=== PATIENT | female | born 1940 | race Asian ===

== ENCOUNTER 2018-09-14 10:39 | Inpatient (IN) | payer OTHER, BC ==
[~2018-09-14] VITALS: Ht 154.9 cm; Wt 62.4 kg
[2018-09-14 10:44] VITALS: Ht 154.9 cm; Wt 62.4 kg
--- NOTE | 2018-09-14 10:51 | NUR ---
ED PHYSICIAN AT BEDSIDE FOR PATIENT EVALUATION. MEDICAL SCREENING EXAMINATION COMPLETED BY ED PHYSICIAN DR. KAMINSKI.
--- NOTE | 2018-09-14 10:58 | NUR ---
PT BIB [facility] FOR C/O GENERALIZED WEAKNESS X1 WEAK THAT IS INCREASING. MEDIC ALSO REPORTS FAMILY STATES A COUPLE FALLS THIS PAST WK. PT IS MANDARIN SPEAKING. AT BEDSIDE PT BREATHING IS E/U, SKIN IS PINK, ABLE TO MOVE ALL EXTREMITIES. PT ATTENDS DIALYSIS M/W/F. PT DID NOT GO TO DIALYSIS TODAY PER EMT. PT ON FULL SURGICAL TECHNOLOGIST, GOWNED, AND LAYING IN BED. EMT AT BEDSIDE PERFORMING EKG.
--- NOTE | 2018-09-14 11:25 | NUR ---
XRAY AT BEDSIDE
[2018-09-14 11:27] LABS: BASOPHIL % 0.3 % (0-2); PLATELET COUNT 148 x10^3mcL (130-400)
[2018-09-14 11:28] LABS: RED CELL DISTRIBUTION WIDTH 16.9 % (11.5-14.5)
[2018-09-14 11:40] LABS: ALKALINE PHOSPHATASE 92 U/L (46-116); ALT/SGPT 15 U/L (14-59); AST/SGOT 26 U/L (15-37); BILIRUBIN TOTAL 0.88 mg/dL (0.20-1.00); CALCIUM 8.2 mg/dL (8.5-10.1); CARBON DIOXIDE 28.8 mmol/L (21-32); CHLORIDE SERUM 96 mmol/L (98-107); GLUCOSE SERUM 228 mg/dL (74-106); POTASSIUM SERUM 4.3 mmol/L (3.5-5.1); SODIUM SERUM 131 mmol/L (136-145)
[2018-09-14 11:46] LABS: ALBUMIN 1.8 g/dL (3.4-5.0); TOTAL PROTEIN, SERUM 6.1 g/dL (6.4-8.2)
--- NOTE | 2018-09-14 12:19 | NUR ---
PT RESTING IN A POSITION OF COMFORFT. PT AAOX4. RESPS EVEN AND UNLABORED. CALL LIGHT WITHIN REACH. BED IN LOW POSITION WITH SIDE RAILS UP X2. APPEARS TO BE NO DISTRESS AT THIS TIME. NO CHANGE IN PT STATUS. WILL CONITINUE TO MONITOR. DAUGHTER AT BEDSIDE.
--- NOTE | 2018-09-14 12:30 | NUR ---
DAUGHTER AT BEDSIDE, PER DAUGHTER PT AMBULATES AT HOME WITH A WALKER BUT LAST NIGHT WAS UNABLE TO D/T WEAKNESS. DAUGHTER ALSO REPORTED THAT PT HAS APPOINTMENT FOR DIALYSIS THIS AFTERNOON.
[2018-09-14] MEDS ORDERED: NOR10 PO (13:36)
[2018-09-14] MEDS ORDERED: LEVOFLOXACIN500 M1 PO (13:37)
[2018-09-14] MEDS ORDERED: LIPI20 PO (13:37)
[2018-09-14] MEDS ORDERED: LASIX40 MG PO (13:37)
[2018-09-14] MEDS ORDERED: RANEXA500 M2 PO (13:38)
[2018-09-14] MEDS ORDERED: METOPROLOL SUCC50 M2 PO (13:38)
[2018-09-14] MEDS ORDERED: LOSARTAN POTAS100 M1 PO (13:38)
[2018-09-14] MEDS ORDERED: PEPCID20 MG PO (13:39)
[2018-09-14 14:08] LABS: MAGNESIUM 2.2 mg/dL (1.8-2.4); PHOSPHOROUS 3.8 mg/dL (2.5-4.9)
[2018-09-14 14:14] LABS: T3 TOTAL 0.57 ng/mL
[2018-09-14 14:16] LABS: CHOLESTEROL/HDL RATIO 4.3
[2018-09-14 14:18] LABS: FREE T4 1.55 ng/dL (0.76-1.46); FREE THYROXINE INDEX 2.8 ug/dL (1.4-4.5); T4(THYROXINE) 7.2 ug/dL (4.7-13.3)
--- NOTE | 2018-09-14 14:21 | NUR ---
REPORT GIVEN TO ELEAZAR CHRISTIANSON TO ASSUME CARE OF PATIENT
[2018-09-14 14:43] VITALS: BP 129/59
--- NOTE | 2018-09-14 14:46 | NUR ---
RECEIVED PT FROM ED VIA ALMA. ORIENTED PT TO ROOM AND SURROUNDINGS. IV NOTED TO PATENT AND INTACT. TELE 16 PLACED ON PT READING NSR. INSTRUCTED PT ON THE USE OF CALL LIGHT FOR ASSISTANCE. ENDORSED PT TO PRIMARY NURSE ELEAZAR
--- NOTE | 2018-09-14 16:23 | NUR ---
PT RESTING IN BED, NO RESPIRATORY DSITRESS NOTED, DENIES PAIN. PT AND DAUGHTER SATYA ESPOSITO STATE THAT DR ROSALES DISCUSSED TUINNEL CATH PLACEMENT. WITNESSED PT SIGN CONSENT FORM. CALL LIGHT WITHIN REACH.
[2018-09-14 17:43] VITALS: BP 111/57
--- NOTE | 2018-09-14 18:30 | NUR ---
PT RESTING IN BED, NO RESPIRATORY DSITRESS NOTED, DENIES PAIN
--- NOTE | 2018-09-14 19:33 | NUR ---
ENDORSED CARE TO SOWMYA CHRISTIANSON AND LYUBOV CHRISTIANSON.
--- NOTE | 2018-09-14 19:40 | NUR ---
DR RICHARDS MADE AWARE OF PT'S TROP-0.593, NO NEW ORDER RECEIVE AT THIS TIME.
--- NOTE | 2018-09-14 19:50 | NUR ---
RECEIVED PT FROM DAYSWIFT NURSE. A/O X4. ON TELE# 16, SR. SCDS AT BEDSIDE. BREATHING IS EVEN AND UNLABORED. [id number]-66%. BOWEL SOUNDS ACTIVE. HAS DIALYSIS ON //. PT HAS GENERALIZED WEAKNESS. SKIN IS CDI. PT HAS RIJ ACCESS. SALINE LOCKED ON L HAND. IV SITE HAS NO S/S OF INFECTION. WILL CONTINUE TO MONITOR.
--- NOTE | 2018-09-14 20:57 | NUR ---
BLOOD SUGAR CHECK - 162. NOTIFIED DR. RICHARDS THAT PT HAS POOR APPETITE AND PROCEDURE TOMORROW. DR RICHARDS STATED TO HOLD INSULIN.
[2018-09-14 21:21] VITALS: BP 127/59
[2018-09-14 22:15] VITALS: BP 128/58
--- NOTE | 2018-09-14 22:15 | NUR ---
HD COMPLTED AT THIS TIME, TOTAL OUTPUT-700 ML, BP-128/58, HR-73, NO DISTRESS NOTED, WILL KEEP TO MONITOR.
--- NOTE | 2018-09-14 22:30 | NUR ---
PT'S DIALYSIS OUTPUT - 700.
--- NOTE | 2018-09-15 03:08 | NUR ---
PT BECAME CONFUSED AFTER DIALYSIS. ORIENTED TO FAMILY. BLOOD SUGAR CHECK - 162. WILL CONTINUE TO MONITOR.
--- NOTE | 2018-09-15 04:17 | NUR ---
PT SEEN RESTING IN BED WITH DAUGHTER AT BEDSIDE. NO ACUTE DISTRESS NOTED. WILL CONTINUE TO MONITOR.
--- NOTE | 2018-09-15 05:41 | NUR ---
PT'S BLOOD SUGAR - 116. NO INSULIN COVERAGE. PT SEEN RESTING IN BED. NO ACUTE DISTRESS NOTED. WILL ENDORSE CARE TO DAYSHIFT NURSE.
[2018-09-15 06:13] VITALS: BP 130/61
[2018-09-15 06:24] LABS: BASOPHIL % 0.1 % (0-2); PLATELET COUNT 141 x10^3mcL (130-400)
[2018-09-15 06:27] LABS: CALCIUM 8.2 mg/dL (8.5-10.1); CARBON DIOXIDE 31.2 mmol/L (21-32); CHLORIDE SERUM 102 mmol/L (98-107); CREATININE SERUM 3.6 mg/dL (0.6-1.0); GLUCOSE SERUM 122 mg/dL (74-106); SODIUM SERUM 139 mmol/L (136-145)
[2018-09-15 06:45] LABS: RED CELL DISTRIBUTION WIDTH 16.7 % (11.5-14.5)
--- NOTE | 2018-09-15 07:25 | NUR ---
RECEIVED PT FROM SEGREGATOR. PT AWAKE, ALERT. FAMILY AT BEDSIDE. PT ON RA, NO RESP DISTRESS NOTED. LUNGS CTA. PT ON TELE # 16. DENIES CHEST PAIN. PERIPHERAL PULSES PALPATED, NO EDEMA NOTED. PT HAS ACTIVE BOWEL SOUNDS. LAST BM 09/11/18 PER FAMILY. PT HAS RIGHT IJ ARANZA CATH. C/D/I. PT HAS IV ACCESS ON LH, C/D/I, HEP LOCKED. PT HAS GENERALIZED WEAKNESS. PT NPO EXCEPT MEDS AT THIS TIME FOR PROCEDURE. SAFETY MEASURES IN PLACE. BED LOW AND LOCKED. CALL LIGHT WITHIN REACH.
[2018-09-15 09:14] VITALS: BP 123/55
--- NOTE | 2018-09-15 10:44 | NUR ---
PT CONT TO TRY TO GET OUT OF BED AND IS CONFUSED. DAUGHTER AT BEDSIDE DOES NOT PREVENT PT FROM GETTING OUT OF BED. DAUGHTER YELLED AT SOFTWARE ASSET MANAGER AND STATED, "THIS IS YOUR JOB. ITS NOT MY JOB TO KEEP HER IN BED. IF SHE FALLS, IM HOLDING YOU RESPONSIBLE. WE CAME HERE SO YOU GUYS CAN WATCH HER." DR GOSS AND MED TEAM AT BEDSIDE TO ASSESS PT. PER OR PT TO HAVE TUNNEL CATH PLACEMENT @ 1300. DAUGHTER NOTIFIED THAT SHE NEEDS TO STAY IN ORDER TO TRANSLATE. DAUGHTER ALSO NOTIFIED THAT STAFF CANNOT STAY AT THE BEDSIDE 17/02 AND IF DAUGHTER CANNOT ASSIST IN PREVENTING PT FROM FALLING, WE MAY HAVE TO RESTRAIN PT TO PREVENT FROM FALLING. DAUGHTER STATES, "ILL TRY TO HELP BUT I DONT KNOW." CHARGE NURSE AWARE.
--- NOTE | 2018-09-15 11:05 | NUR ---
SPOKE TO AGAPITO IN SURGERY, GAVE REPORT ON PATIENT. CONCERNED ABOUT ELEVATED TROPONIN. PER DR ROSALES, PT IS CLEARED FOR SURGERY, NO FURTHER CARDIAC WORKUP NEEDED AT THIS TIME. RELAYED INFORMATION TO AGAPITO. EKG IN THE CHART.
--- NOTE | 2018-09-15 11:30 | NUR ---
PT WIPED DOWN [facility] CHG WIPES TO PREPARE FOR SURGICAL PROCEDURE. NO ACUTE DISTRESS NOTED AT THIS TIME. DENIES PAIN, SAFETY MEASURES MAINTAINED.
--- NOTE | 2018-09-15 12:30 | NUR ---
PT OFF UNIT TO OR.
[2018-09-15 12:34] VITALS: BP 111/61
--- NOTE | 2018-09-15 13:09 | NUR ---
PHYSICAL THERAPY HERE TO WORK WITH PT AND NOTIFIED PT OFF UNIT IN OR.
[2018-09-15 13:35] VITALS: BP 128/53
--- NOTE | 2018-09-15 13:35 | NUR ---
PT BACK FROM OR BY ALISON ACCOMPANIED BY OR NURSE PUSHPA. PT SLEEPY BUT AROUSABLE AT THIS TIME. VSS 98.5 128/57 (81) HR 65 O2 SAT 94% ON ROOM AIR. NEW IV ACCESS PLACED IN OR RIGHT FOREARM 20G C/D/I. PT HAS NEW PERMACATH FOR HD ON RIGHT UPPER CHEST. NO ACUTE DISTRESS NOTED AT THIS TIME. SAFTEY MAINTAINED. BED ALARM ON. FAMILY AT BEDSIDE.
--- NOTE | 2018-09-15 14:10 | NUR ---
FAMILY CONCERNED ABOUT GETTING HELP WITH PATIENT WHEN SHE GOES HOME FROM HOSPITAL ALSO HAD QUESTIONS REGARDING CODE STATUS. DR ROSALES AWARE OF FAMILY CONCERNS, AT BEDSIDE DISCUSSING PLAN OF CARE AND CODE STATUS WITH FAMILY.
--- NOTE | 2018-09-15 16:47 | NUR ---
I WALKED INTO PT ROOM AND FOUND PT ON TOILET ASSISTED BY 2 DAUGHTERS. PT UNSTEADY AND LEANING FORWARD ON TOILET. I CALLED FOR ASSISTANCE AND UNIT SECREATARY ASSISTED ME TO STEADY PT ON TOILET. PER FAMILY, PT IS CONSTIPATED AND WANTED TO WALK TO BATHROOM. I ASKED FAMILY WHY SHE DID NOT CALL FOR HELP AND DAUGHTER STATED, "YOU GUYS DONT WANT TO GET HER UP AND SHE CANT GO THE BATHROOM AND BED." I EXPLAINED THAT PT IS MAX ASSIST AT THIS TIME AND UNABLE TO EVEN STAND ON HER OWN. FUEL SYSTEM MAINTENANCE SUPERVISOR AND I PLACED PT IN BED AND PUSHED HER IN CHAIR BACK TO BED. I EXPLAINED TO DAUGHTERS THAT PT ALMOST FELL AND CANNOT GET UP AT THIS TIME. I EDUCATED THEM ON FALL RISK AND RISK OF INJURY. I EXPLAINED THAT PT WILL NOW USE THE BEDPAN AND WE WILL HAPPILY ASSIST HER AND CLEAN HER UNTIL SHE REGAINS HER STRENGTH TO AMBULATE. DAUGHTERS VERBALIZED UNDERSTANDING. BED ALARM ON. CALL LIGHT WITHIN REACH. NO RESPIRSTORY DISTRESS NOTED AND DENIES PAIN.
[2018-09-15 16:48] VITALS: BP 116/47
--- NOTE | 2018-09-15 17:06 | NUR ---
ATTENDING RN INDICATED THAT PATIENT IS TAKEN FOR SURGICAL PROCEDURE, COULD NOT BE SEEN FOR PHYSICAL THERAPY SESSION
--- NOTE | 2018-09-15 17:35 | NUR ---
PT STABLE AT THIS TIME. DR ROSALES NOTIFIED OF NEED FOR LAXATIVE. PT WITH NO BM X 4 DAYS. NO ACUTE DISTRESS NOTED AT THIS TIME. PT FAMILY AT BEDSIDE, SAFETY MEASURES IN PLACE. BED ALARM ON. WILL CONTINUE TO MONITOR AND ENDORSE TO BRASS INSTRUMENT REPAIR TECHNICIAN
--- NOTE | 2018-09-15 18:05 | NUR ---
PT TRANSFERRED TO ROOM 216 FOR FALL RISK. PT PULLED UP AND REPOSITIONED. ASSISTED WITH DINNER TRAY SETUP. DAUGHTERS AT BEDSIDE. BED ALARM ON. CALL LIGHT WITHIN REACH.
--- NOTE | 2018-09-15 19:30 | NUR ---
PT SEEN, RESTING IN BED, ALERT AND ORIENTED X 2 WITH [place]INGAPORE[place] SPEAKING ONLY, WITH PERIOD OF CONFUSION AND FORGETFUL, DENIES HEADACHE OR DIZZINESS, BREATHING EVEN AND UNLABORED, ON ROOM AIR WITH NO RESP DISTRESS NOTED, RT CHEST WITH PERMA CATH, DRESSING C/D/I, PULSES PALPABLE, NO EDEMA NOTED, GENERALIZED WEAKNESS, ABD ROUND WITH ACTIVE BS, NO BM AT THIS TIME, ANURIA, HD PT, LAST HD 09/14 WITH 700 ML OUT, PT ABLE TO REPOSITION HERSELF IN BED, FALL PRECAUTION IN PLACE, NO DISTRESS NOTED, WILL KEEP TO MONITOR.
[2018-09-15 21:01] VITALS: BP 127/51
--- NOTE | 2018-09-15 21:57 | NUR ---
HD NURSE MARQUITA STATED THAT PT IS ON THE SCHEDULE FOR HD IN AM.
--- NOTE | 2018-09-15 23:28 | NUR ---
ROUNDS MADE, PT AWAKE AND RESTING IN BED, RESTLESS AT TIMES, PT STILL VERY CONFUSED AT THIS TIME, DAUGHTER AT BEDSIDE, SIDE RAILS UP, FALL PRECAUTION IN PLACE, NO DISTRESS NOTED, WILL CONTINUE TO MONITOR.
[2018-09-16 05:46] VITALS: BP 122/52
--- NOTE | 2018-09-16 06:13 | NUR ---
PT AWAKE AT THIS TIME, MOST OF TIME RESTLESS IN BED, ON TELE#16 NSR, SL TO RFA, PERMA CATH TO RT CHEST, HD IN AM, SIDE RAILS UP, BED ALARM ON.
[2018-09-16 07:01] LABS: BASOPHIL % 0 % (0-2); PLATELET COUNT 170 x10^3mcL (130-400); RED CELL DISTRIBUTION WIDTH 16.6 % (11.5-14.5)
--- NOTE | 2018-09-16 07:05 | NUR ---
BEDSIDE HANDOFF REPORT DONE WITH LUANN-RN, ALL QUESTIONS ANSERED AND CONCERNS ADDRESSED. PLAN- HD IN AM.
[2018-09-16 07:17] LABS: CALCIUM 8.5 mg/dL (8.5-10.1); CARBON DIOXIDE 27.8 mmol/L (21-32); CHLORIDE SERUM 100 mmol/L (98-107); GLUCOSE SERUM 147 mg/dL (74-106); POTASSIUM SERUM 4.7 mmol/L (3.5-5.1); SODIUM SERUM 138 mmol/L (136-145)
[2018-09-16 07:19] LABS: CREATININE SERUM 4.6 mg/dL (0.6-1.0)
--- NOTE | 2018-09-16 07:23 | NUR ---
RECEIVED REPORT FROM LYUBOV CHRISTIANSON. PT RESTING COMFRTABLY IN BED WITH DAUGHTER AT BEDSIDE. IV TO LFA IS PATENT AND INTACT. NO REDNESS OR PAIN. TELE # [address] NO C/O CHEST PAIN. PT ON ROOM AIR. NO C/O SOB AND NO DISTRESS NOTED. ALL QUESTIONS AND CONCERNS ADDRESSED.
[2018-09-16 09:44] VITALS: BP 122/56
--- NOTE | 2018-09-16 09:59 | NUR ---
SPOKE WITH DONALD CAR PAINTER ABOUT LACTULOSE THAT FAMILY HAS AND REPORTS WAS PRESCRIBED AT [facility] FOR CONSTIPATION. DONALD TO PUT ORDERS IN TO CONTINUE LACTULOSE AND HAS ALREADY ORDERED [facility] TO BE DRAWN.
--- NOTE | 2018-09-16 11:25 | NUR ---
CALLED DONALD TIMBER PACKER TO NOTIFY OF [facility] COMING BACK 18 (NORMAL RANGE).
[2018-09-16 12:39] VITALS: BP 115/53
--- NOTE | 2018-09-16 14:53 | NUR ---
IN TO SEE PATIENT AND ADMINISTER MEDICTION (SEE eMAR).
--- NOTE | 2018-09-16 15:59 | NUR ---
IN TO SEE PATIENT AND ASSESS NEEDS AFTER LUNCH. PT RESTING COMFORTABLY IN BED CLAIMING SHE HAS HAD A BM. PT CHECKED AND NO BM WAS PRESENT. ALL OTHER NEEDS MET. WILL CONTINUE TO MONITOR.
--- NOTE | 2018-09-16 17:07 | NUR ---
IN TO ADMINISTER 2 UNITS REGULAR INSULIN FOR GLUCOSE 164. PT RESTING COMFORTABLY IN BED WITH FAMILY ST BEDSIDE. DIALYSIS NURSE BEGINNING DIALYSIS NOW.
[2018-09-16 17:38] VITALS: BP 107/54
--- NOTE | 2018-09-16 19:20 | NUR ---
PT CONTINUING HEMODIALYSIS AT BEDSIDE. FAMILY AT BEDSIDE. AAOX1. NSR, TELE# 16. PULSES ARE MODERATE TO BUE AND BLE. LUNG SOUNDS CLEAR. PT ON ROOM AIR WITH NO S/SX OF SOB OR RESPIRATORY DISTRESS NOTED. NO S/SX OF PAIN OR DISCOMFORT NOTED. SKIN INTACT. BS ACTIVE X 4. ABD FLAT, SOFT, NONTENDER. PT HAS PERMA CATH TO R CHEST. BED IN LOW POSITION. CALL LIGHT WITHIN REACH. WILL CONTINUE TO MONITOR.
--- NOTE | 2018-09-16 19:24 | NUR ---
PT RESTING COMFORTABLY IN BED WITH FAMILY AT BEDSIDE. PT CURRENTLY HAVING DIALYSIS. NO DISTRESS. IV TO RFA IS PATENT AND INTACT. NO REDNESS OR PAIN. TELE # [address] PT DENIES CHEST PAIN. PT ON ROOM AIR. NO C/O SOB AND NO DISTRESS NOTED. WILL ENDORSE ALL CARE TO ONCOMING NURSE.
--- NOTE | 2018-09-16 19:33 | NUR ---
RECEIVED REPORT FROM LUANN CHRISTIANSON. WILL CONTINUE PT CARE AND TREATMENT.
--- NOTE | 2018-09-16 20:00 | NUR ---
PT FINISHED WITH DIALYSIS WITH -1700 OUT. PT TOLERATED DIALYSIS WELL.
[2018-09-16 21:28] VITALS: BP 106/53
--- NOTE | 2018-09-16 22:30 | NUR ---
PT NOT SLEEPING WELL X 2 DAYS. PT AND FAMILY REQUESTING SLEEPING AID FOR PT. NOTIFIED AND ORDER PLACED FOR ZOLPIDEM 5MG PO PRN.
--- NOTE | 2018-09-16 23:56 | NUR ---
PT SLEEPING COMFORTABLY IN BED AFTER RECEIVING ZOPIDEM PO. FAMILY AT BEDSIDE.
--- NOTE | 2018-09-17 05:30 | NUR ---
SHAREPOINT NET DEVELOPER AT BEDSIDE FOR BLOOD DRAW.
--- NOTE | 2018-09-17 05:44 | NUR ---
PT SLEPT COMFORTABLY THROUGHOUT NIGHT. NO SOB OR RESPIRATORY DISTRESS NOTED. PT ON RA. NO S/SX OF PAIN OR DISCOMFORT NOTED. BREATHING EVEN AND UNLABORED. LUNG SOUNDS CLEAR. NSR. NO EDEMA NOTED. BS ACTIVE X 4. ABDOMEN SOFT, FLAT, NONTENDER. PT HAD MED SIZE BM X 1. SKIN INTACT AND APPROPRIATE COLOR FOR RACE. DAUGHTER AT BEDSIDE. ALL NEEDS MET AND ANTICIPATED. BED IN LOW POSITION. CALL LIGHT WITHIN REACH. WILL GIVE REPORT TO ONCOMING RN.
[2018-09-17 06:11] VITALS: BP 98/46
[2018-09-17 06:18] LABS: BASOPHIL % 0 % (0-2); PLATELET COUNT 121 x10^3mcL (130-400); RED CELL DISTRIBUTION WIDTH 16.9 % (11.5-14.5)
[2018-09-17 06:30] LABS: CARBON DIOXIDE 29.1 mmol/L (21-32); CHLORIDE SERUM 102 mmol/L (98-107); CREATININE SERUM 3.6 mg/dL (0.6-1.0); GLUCOSE SERUM 91 mg/dL (74-106); MAGNESIUM 1.9 mg/dL (1.8-2.4); POTASSIUM SERUM 4.2 mmol/L (3.5-5.1); SODIUM SERUM 138 mmol/L (136-145)
--- NOTE | 2018-09-17 07:09 | NUR ---
RECEIVED REPORT FROM YUNG CHRISTIANSON. PT SLEEPING COMFORTABLY IN BED WITH DAUGHTER AT BEDSIDE. IV TO RFA IS PATENT AND INTACT. NO REDNESS OR PAIN. TELE # [address] NO INDICATION OF CHEST PAIN. PT ON ROOM AIR. NO DISTRESS NOTED. ALL QUESTIONS AND CONCERNS ADDRESSED.
--- NOTE | 2018-09-17 07:14 | NUR ---
GAVE REPORT TO LUANN CHRISTIANSON. ALL QUESTIONS AND CONCERNS ADDRESSED.
--- NOTE | 2018-09-17 09:55 | NUR ---
IN TO SEE PATIENT AND ADMINISTER MEDICATIONS. PT SLEEPING COMFORTABLY IN BED WITH DAUGHTER AT BEDSIDE. DAUGHTER DOES NOT WANT TO WAKE MOTHER. DAUGHTER REQUESTS IF MEDICATION CAN BE GIVEN LATER.
[2018-09-17 10:05] VITALS: BP 112/43
--- NOTE | 2018-09-17 11:00 | NUR ---
IN TO SEE PATIENT AND ADMINSTER MORNING MEDICATIONS. PT AWAKE AND ALERT.
--- NOTE | 2018-09-17 12:27 | NUR ---
IN TO ADMINISTER 6 UNITS REGULAR INSULIN FOR BLOOD GLUCOSE OF 203.PT RESTING COMFORTABLY IN BED WITH FAMILY AT BEDSIDE.
--- NOTE | 2018-09-17 12:52 | NUR ---
INSTRUCTIONAL ASSISTANT DR LINDQUIST IN TO SEE AND ASSESS PATIENT.
--- NOTE | 2018-09-17 14:31 | NUR ---
PT AMBULATED IN THE [place] WITH PHYSICAL THERAPY.
[2018-09-17 14:55] VITALS: BP 116/43
--- NOTE | 2018-09-17 15:47 | NUR ---
SPOKE WITH ASSOCIATE PRODUCT INTEGRITY ENGINEER DONALD TO EXPRESS FAMILY CONCERNS ABOUT PT NOT URINATING. PER FAMILY, PT STILL PRODUCES SOME URINE BUT HAS NOT URINATED ALL DAY AND POSSIBLY YESTERDAY TOO. DONALD OK TO ORDER BLADDER SCAN.
--- NOTE | 2018-09-17 16:22 | NUR ---
CALLED BEEF RIBBER DONALD AND LEFT MESSAGE NOTIFYING OF BLADDER SCAN RESULTS 320 AND 336. AWAITING CALL RETURN AND ORDERS.
--- NOTE | 2018-09-17 17:48 | NUR ---
IN TO SEE PATIENT TO ASSESS HUNGER AND FEED. PT REPORTS SHE IS NOT HUNGRY. PT DID REQUEST A DRINK OF WATER. PROVIDED A DRINK AND WILL RETRY FEEDING.
--- NOTE | 2018-09-17 18:05 | NUR ---
SPOKE WITH DONALD ABOUT PT BLADDER SCAN RESULTS. DONALD ORDERED STRAIGHT CATH X1.
[2018-09-17 18:26] VITALS: BP 122/46
--- NOTE | 2018-09-17 19:01 | NUR ---
IN TO SEE PATIENT TO INITIATE STRAIGHT CATH. INSERTED 14 URDU CATH AND OBTAINED 500 ML DARK YELLOW URINE. PT TOLERATED IT WELL.
--- NOTE | 2018-09-17 19:12 | NUR ---
REPORT GIVEN TO LARRY CHRISTIANSON. PT RESTING COMFORTABLY IN BED WITH DAUGHTER AT BEDSIDE. ALL QUESTIONS AND CONCERNS ADDRESSED. ALL CARES ENDORSED.
--- NOTE | 2018-09-17 19:25 | NUR ---
RECEIVED PT IN BED AWAKE W/ DAUGHTER AT BEDSIDE. PER DAUGHTER, PT IS ORIENTED TO PERSON , PLACE AND TIME AT THIS TIME. DAUGHTER STATED PT IS MORE ORIENTED TODAY THAN PREVIOUS 2 DAYS ALTHOUGH SHE SAID PT ALSO HAD A LITTLE EPISODE OF CONFUSION DURING THE DAY. LUNGS CTA. NO SOB ON RA. SHE HAS NO C/O PAIN. BOWEL SOUNDS ACTIVE. ABDOMEN IS DISTENDED AND SOFT. W/ HL TO RTFA INTACT. CALL LIGHT W/IN REACH. BED ALARM ACTIVATED FOR SAFETY.
[2018-09-17 20:40] VITALS: BP 123/51
--- NOTE | 2018-09-17 21:15 | NUR ---
PT WAS ABLE TO TAKE PO MEDS WELL.
--- NOTE | 2018-09-17 23:30 | NUR ---
PT'S EYES ARE CLOSED AND APPEARS TO BE SLEEPING COMFORTABLY. RESP. EVEN AND UNLABORED.
--- NOTE | 2018-09-18 02:00 | NUR ---
PT WOKE UP AND REQUESTED FOR SNACK. AFTER EATING, PT WENT BACK TO SLEEP. PT HAS NO C/O PAIN OR DISCOMFORT.
--- NOTE | 2018-09-18 04:30 | NUR ---
PT NOTED W/ NO URINE OUTPUT SINCE 1929 (START OF SHIFT). PT STATED SHE DOES NOT FEEL LIKE VOIDING. BLADDER SCAN DONE AND IT SHOWED OVER 900 ML.
--- NOTE | 2018-09-18 04:50 | NUR ---
HAD PT TRY TO URINATE IN BEDPAN BUT STILL WAS UNABLE TO. PAGED DR. RICHARDS TO NOTIFY. WAITING FOR HER CALL BACK.
[2018-09-18 05:11] VITALS: BP 124/48
--- NOTE | 2018-09-18 05:30 | NUR ---
PEARCE CATH [place] 16 INSERTED ORDERED. PT TOLERATED PROCEDURE WELL. NOTED CLEAR TEA COLORED URINE DRAINING SLOWLY.
--- NOTE | 2018-09-18 06:14 | NUR ---
PT AWAKE AND ALERT. SHE REMAINED CALM AND SLEPT FAIRLY DURING THE NIGHT. SHE HAD NO C/O PAIN. PEARCE CATH W/ 300 CC OUTPUT AT THIS TIME. NO BM NOTED THIS SHIFT. HL TO RTFA INTACT. CALL LIGHT W/IN REACH.
--- NOTE | 2018-09-18 07:35 | NUR ---
PT IS AAOX3-4 WITH INTERMITTENT CONFUSION. FOLLOWS COMMANDS. RESP EVEN AND UNLABORED. LUNG SOUNDS CTA. ON O2 N/C AT 2 LPM. TELE MONITOR [address] READING SR WITH DEPRESSED ST. ABODOMEN SOFT, NONTENDER, WITH MILD DISTENTION. BOWEL SOUNDS ACTIVE. PEARCE CATH IN PLACE DRAINING DARK YELLOW URINE TO GRAVITY. STAT LOCK TO R THIGH. IV CAHT TO RFA N/S LOCKED. NO S/S OF INFECTION AT SITE. R CHEST PERMACATH COVERED WITH CDI DRESSING. SITE WNL. PT DENIES PAIN OR DISCOMFORT AT THIS TIME. CALL LIGHT WITHIN REACH. BED IN LOW POSITION. BED ALARM ON. FALL PROTOCOL FOLLOWED.
[2018-09-18 08:15] VITALS: BP 126/50
--- NOTE | 2018-09-18 08:26 | NUR ---
RECEIVED ORDER FROM PHILLY ENGEL NP, D/C PEARCE CATH. ORDER NOTED AND CARRIED OUT.
--- NOTE | 2018-09-18 09:43 | NUR ---
PT RECEIVED P/T TRAINING, AMBULATED 200 FT MODERATE ASSIST. PT BACK IN BED. NO RESP DISTRESS NOTED.
--- NOTE | 2018-09-18 09:50 | NUR ---
DUE MEDS GIVEN AND TOLERATED WELL. PEARCE CATH REMOVED INTACT. PT TOLERATED PROCEDURE WELL. PT DENIES PAIN AND DISCOMFORT. CALL LIGHT WITHIN REACH. BED IN LOW POSITION. BED ALARM ON.
[2018-09-18 12:30] VITALS: BP 113/46
--- NOTE | 2018-09-18 13:00 | NUR ---
PT RECEIVING DIAYLISIS AT THIS TIME.
[2018-09-18 13:27] VITALS: BP 113/46
--- NOTE | 2018-09-18 13:42 | NUR ---
CALLED [facility] AND SPOKE WITH JOY, SCHEDULED COMMERCIAL LOAN ADMINISTRATOR FOR TRANSFER TO [facility] AT 4:OOPM TODAY (09/18/18). PATIENT AND FAMILY MADE AWARE.
--- NOTE | 2018-09-18 13:57 | NUR ---
PT HAS TRANSFERRED BY AMBULANCE ON A GURNEY ESCORTED BY 2 EMT TO [facility]. TRANSFER FORM SIGNED AND IN CHART. TRANSFER INSTRUCTIONS REVIEWED WITH PT. PT LEFT IN NO DISTRESS, DENIED CHEST PAIN, PRESSURE AND PALPITATIONS. VS: 97.8M, 65, 20, 154/98, 99% ON R/A. IV CATH TO RAC N/S LOCKED. SITE WNL. PT'S ACCOMPANIED PT UPON TRANSFER.
--- NOTE | 2018-09-18 16:45 | NUR ---
PT TRANSFERRED ON A GUERNEY ESCORTED BY 2 EMT FROM [facility] TO [facility]. REPORT GIVEN TO SAMMY KOEHLER. PT DISCHARGED IN NO DISTRESS. ALL TRANSFER FORMS SIGNED. IV CATH TO RFA REMOVED INTACT. SITE WNL. VS: 98.4, 53,16, 113/46, 94% R/A. PT DENIES PAIN OR DISCOMFORT AT TIME OF TRANSFER. ALL BELONGINGS TAKE WITH PT.
== END 2018-09-18 16:51 | DRG 981 ==
LOC: ED 10:39 → MU 13:56 → DU 13:56
PROVIDERS: Emergency Medicine; Internal Medicine; Surgery; ADMIT Family Medicine
PROC: 0J2TXYZ Change Other Device in Trunk Subcutaneous Tissue and Fascia, External Approach (ICD-10-PCS; 2018-09-15)
PROC: 03723ZZ Dilation of Innominate Artery, Percutaneous Approach (ICD-10-PCS; principal; 2018-09-15 13:00)
DX: K72.90 Hepatic failure, unspecified without coma (principal); N18.6 End stage renal disease; E43 Unspecified severe protein-calorie malnutrition; I12.0 Hypertensive chronic kidney disease with stage 5 chronic kidney disease or end stage renal disease; E87.1 Hypo-osmolality and hyponatremia; I24.8 Other forms of acute ischemic heart disease; D63.8 Anemia in other chronic diseases classified elsewhere; E11.22 Type 2 diabetes mellitus with diabetic chronic kidney disease; K74.60 Unspecified cirrhosis of liver; Z68.26 Body mass index [BMI] 26.0-26.9, adult; Z99.2 Dependence on renal dialysis; Z79.84 Long term (current) use of oral hypoglycemic drugs; Z66 Do not resuscitate
CPT/HCPCS: 82962; 83880; 84439; 87804; 97110-GP; 97112-GP; 97116-GP; 97530-GP; A4301; J0690; J1200; J1644; J2001; J3490; J7030; J7040; Q0092